=== PATIENT | male | born 1985 | race Caucasian/White ===

== ENCOUNTER 2019-11-14 13:23 | Emergency (ER) | payer SELFPAY ==
[2019-11-14] MEDS ORDERED: Ketorolac Tromethamine 30 MG/ML VIAL ONE (14:40)
[2019-11-14] MEDS ORDERED: HYDROcodone/Acetaminophen 5/325 mg Tablet ONE (14:40)
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
== END 2019-11-14 16:00 | disposition home or self-care (01) ==
LOC: ERS 13:23
DX: S29.012A Strain of muscle and tendon of back wall of thorax, initial encounter (principal); S39.012A Strain of muscle, fascia and tendon of lower back, initial encounter; S16.1XXA Strain of muscle, fascia and tendon at neck level, initial encounter; V49.9XXA Car occupant (driver) (passenger) injured in unspecified traffic accident, initial encounter
CPT/HCPCS: 72040; 72072; 72100; 96372; J1885

== ENCOUNTER 2022-06-04 18:57 | Emergency (ER) | payer OTHER, SELFPAY ==
[2022-06-04] MEDS ORDERED: Ketorolac Tromethamine 30 MG/ML VIAL ONE (21:11)
== END 2022-06-04 21:54 | disposition home or self-care (01) ==
LOC: ERS 18:57
DX: S30.0XXA Contusion of lower back and pelvis, initial encounter (principal); V89.2XXA Person injured in unspecified motor-vehicle accident, traffic, initial encounter
CPT/HCPCS: 72100; 96372; J1885

== ENCOUNTER 2024-06-06 14:40 | Outpatient (CLI) | payer OTHER, SELFPAY | END 2024-06-06 14:41 | disposition home or self-care (01) | LOC: SCSRAD 14:40 | PROVIDERS: ATTEND Family Medicine | DX: R55 Syncope and collapse (principal); R91.8 Other nonspecific abnormal finding of lung field | CPT/HCPCS: 71046 ==